=== PATIENT | male | born 1995 | race American Indian/Alaskan Native ===

== ENCOUNTER 2018-07-01 21:36 | Emergency (ER) | payer MEDICARE, OTHER ==
[2018-07-02 02:33] VITALS: BP 110/60
[2018-07-02] MEDS ORDERED: IBUPROFEN PO ONE (05:23)
[2018-07-02] MEDS ORDERED: TYLENOL PO ONE (05:23)
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
== END 2018-07-02 06:40 | disposition home or self-care (01) ==
LOC: ED 21:36
DX: M62.830 Muscle spasm of back (principal); V49.59XA Passenger injured in collision with other motor vehicles in traffic accident, initial encounter; Y93.89 Activity, other specified; Y92.410 Unspecified street and highway as the place of occurrence of the external cause; Y99.8 Other external cause status